=== PATIENT | male | born 1950 | race Caucasian/White ===

== ENCOUNTER → 2022-09-01 | Outpatient (CLI) | payer OTHER ==
--- NOTE | 2022-09-03 10:46 | PE ---
EXAMINATION TYPE: PET CT fusion skull to thigh DATE OF EXAM: 09/01/2022 CLINICAL INDICATION:Male, 72 years old with history of C90.00 Multiple myeloma; TECHNIQUE: Following the intravenous administration of 10.36 mCi of F-18 FDG, whole body images are performed from the skull base to the midthigh. Images are reviewed on the computer in the coronal, axial, and sagittal planes. Reconstructed rotating images are created on independent workstation and reviewed on the computer. A non-contrast CT is performed in conjunction with the PET scan. Glucose level 87 mg/dL COMPARISON: CT None, PET/CT None, FINDINGS: Mediastinal SUV mean is 1.7. Hepatic parenchyma SUV mean is 2.3. SKULL BASE AND NECK: No suspicious radiotracer activity. CHEST, MEDIASTINUM, AND HILAR REGION: No suspicious radiotracer activity. ABDOMEN AND PELVIS: No suspicious radiotracer activity. OSSEOUS STRUCTURES: No suspicious radiotracer activity. Total knee arthroplasty changes bilaterally. OTHER CT: Right chest wall Acosdy-d-Wcgm with tip terminating in the superior vena cava. Scattered pa rtially calcified lymph nodes in this mediastinum. Conduction device with leads terminating in the ri ght ventricle and atrium. Scattered calcified splenic granulomas. Bilateral fat-containing femoral he rnias. IMPRESSION: No suspicious radiotracer activity.
== END | disposition home or self-care (01) ==
LOC: RADPETMAIN 14:09
PROVIDERS: ATTEND Internal Medicine
DX: C90.00 Multiple myeloma not having achieved remission (principal)
CPT/HCPCS: 78815; A9552

== ENCOUNTER 2023-07-09 11:02 | Day surgery (SDC) | payer OTHER ==
[2023-07-04 15:36] VITALS: BMI 35.2
[2023-07-09] MEDS ORDERED: SODIUM CHLORIDE 0.9% 500 ML 500 ML IV ONE (11:08)
[2023-07-09 11:38] LABS: Glucose,Whole Blood 199 mg/dL (70-110)
[2023-07-09] MEDS ORDERED: fentaNYL (PF) 50 MCG/ML 2 ML AMP ONE (11:46)
[2023-07-09 12:08] VITALS: TEMP 98.1
[2023-07-09] MEDS ORDERED: fentaNYL (PF) 50 MCG/ML 2 ML AMP IVP ONE (12:14)
[2023-07-09] MEDS ORDERED: MIDAZOLAM 2 MG/2 ML VIAL IVP ONE ×2 (12:14→12:16)
--- NOTE | 2023-07-09 12:59 | P.TEE ---
Date of Procedure: 07/09/23 Description of Procedure(s): Procedure performed: 1. Transesophageal Echocardiogram with color flow doppler, pulsed wave doppler and continuous wave doppler 2. Moderate conscious sedation. Sedation time 15 mins. 3. Bubble Study Indications: 4 weeks post watchman procedure 73-year-old male with past medical history of diabetes, hypertension, dyslipidemia, atrial fibrillation who underwent watchman procedure on May 28 at [facility]. He was scheduled for an outpatient transesophageal echocardiogram procedure as a part of post watchman evaluation. Consent: I have discussed the risks, benefits and alternative therapies for the above-mentioned procedure. The patient has indicated understanding and acceptance of the risks of the procedure. Signed consent was obtained and was placed in the paper chart. Procedural Steps: Timeout was performed in usual fashion. Patient's heart rate, blood pressure, oxygen saturation and ECG were monitored. Benzocaine was sprayed liberally in the back of the throat. Bite block was placed between the jaw. 2 mg of Versed and 75 mcg of Fentanyl were administered intravenously. After achieving appropriate moderate conscious sedation, KARINA probe was advanced without difficulty and without any immediate complications to the esophagus. KARINA study was performed with color flow doppler, pulsed wave doppler and continuous wave doppler. Agitated saline bubbles were injected to assess for any intra- atrial shunt. The probe was then removed. Patient tolerated the procedure well. Patient was transferred to the post procedure area in stable and satisfactory condition. Throughout the procedure patient's heart rate, blood pressure, oxygen saturation and ECG were monitored. Total sedation time 15 mins. Complications: none FINDINGS Left Atrium: Normal Left atrial size. No evidence of mass or thrombus seen Left Atrial Appendage: Watchman device in appropriate position. No device related thrombosis. There is small leak appreciated at the superio-lateral aspect of the watchman device. Inter atrial septum: Intact inter-atrial septum with no evidence of atrial septal defect. Left Ventricle: Normal global LV size and systolic function. Right Atrium: Normal overall RV size. PPM wire in RA with no vegetation. Right Ventricle: Normal global RV size and systolic function. PPM wire in RV with no vegetation. Aortic Valve: Structurally normal Trileaflet, no significant calcification. No significant stenosis. Trace regurgitation on color doppler assessment. Mitral Valve: Struturally normal. Mild regurgitation. Pulmonic Valve: Structurally normal. Tricuspid Valve: Structurally normal. Ascending aorta, Aortic root and Aortic arch: Mild intimal thickening. Normal size 3.8 cm Descending aorta: Mild intimal thickening. CONCLUSION: Well seated watchman device with small leak No device related thrombosis No evidence of thrombus in left atrium Mild mitral regurgitation Patient is on DAPT therapy with aspirin and Plavix. Would recommend to be started on systemic anticoagulation due to leak in the watchman device. Updated EP team who would take the final decision considering patient's bleeding risk and appropriateness of anticoagulation Followup with Dr Murray Performing and interpreting physician Jimmy Solares MD
[2023-07-09] MEDS ORDERED: INSULIN ASPART (NovoLOG) 100 UNIT/ML VIAL SQ ONE (13:36)
[2023-07-09 14:53] VITALS: BP 120/64; PULSE 72; RESP 16
== END 2023-07-09 14:12 | disposition home or self-care (01) ==
LOC: CATHCVL 11:02
PROVIDERS: ATTEND Student in an Organized Health Care Education/Training Program
DX: I48.19 Other persistent atrial fibrillation (principal); E78.5 Hyperlipidemia, unspecified; I25.10 Atherosclerotic heart disease of native coronary artery without angina pectoris; I12.9 Hypertensive chronic kidney disease with stage 1 through stage 4 chronic kidney disease, or unspecified chronic kidney disease; E11.22 Type 2 diabetes mellitus with diabetic chronic kidney disease; N18.9 Chronic kidney disease, unspecified; Z86.73 Personal history of transient ischemic attack (TIA), and cerebral infarction without residual deficits; Z95.810 Presence of automatic (implantable) cardiac defibrillator; Z88.8 Allergy status to other drugs, medicaments and biological substances; Z79.899 Other long term (current) drug therapy; Z79.84 Long term (current) use of oral hypoglycemic drugs
CPT/HCPCS: 93312; 93320; 93325; 99152; J2250; J3010

== ENCOUNTER → 2023-10-11 | Outpatient (CLI) | payer OTHER ==
--- NOTE | 2023-10-11 19:34 | PE ---
EXAMINATION TYPE: PET CT fusion skull to thigh DATE OF EXAM: 10/11/2023 CLINICAL INDICATION:Male, 73 years old with history of C90.01 myeloma; TECHNIQUE: Following the intravenous administration of 12.46 mCi of F-18 FDG, whole body images are performed from the skull base to the midthigh. Images are reviewed on the computer in the coronal, axial, and sagittal planes. Reconstructed rotating images are created on independent workstation and reviewed on the computer. A non-contrast CT is performed in conjunction with the PET scan. Glucose level 100 mg/dL CT DLP: 1349 mGycm, Automated exposure control for dose reduction was used. COMPARISON: CT None, PET/CT 09/01/2022, FINDINGS: Mediastinal SUV mean is 2.4. Hepatic parenchyma SUV mean is 2.9. SKULL BASE AND NECK: No suspicious radiotracer activity. CHEST, MEDIASTINUM, AND HILAR REGION: No suspicious radiotracer activity. ABDOMEN AND PELVIS: No suspicious radiotracer activity. OSSEOUS STRUCTURES: Increased focal uptake within the left iliac near a site of deformity with a luce nt area which is not significantly changed from prior in size from 09/01/2022. Series 3 image 229 Max SUV 9.9, previously 6.3. The right iliac crest also demonstrates early bony remodeling in a similar location max SUV 4.6, previously 2.1. OTHER CT: Right chest wall Kuxzlt-j-Brac with tip terminating in the superior vena cava. Scattered pa rtially calcified lymph nodes in this mediastinum. Conduction device with leads terminating in the ri ght ventricle and atrium. Nodular contour to liver. Scattered calcified splenic granulomas the spleen is enlarged for size measuring up to 16.9 cm. Bilateral fat-containing femoral hernias. IMPRESSION: 1. Indeterminate uptake within the left iliac crest which has mildly increased with underlying bony deformity and a more central lucent area. Findings could represent chronic injury change versus myelo ma changes continued surveillance imaging. The right iliac crest also has a similar early bony deform ity changes with mildly increased uptake. 2. Nodular contour to liver with splenomegaly correlate for hepatic cirrhosis with underlying portal hypertension.
== END | disposition home or self-care (01) ==
LOC: RADPETMAIN 10:48
PROVIDERS: ATTEND Internal Medicine
DX: C90.01 Multiple myeloma in remission (principal); R16.1 Splenomegaly, not elsewhere classified; K76.89 Other specified diseases of liver
CPT/HCPCS: 78815; A9552

== ENCOUNTER 2024-08-04 18:02 | Emergency (ER) | payer OTHER ==
[2024-08-04 18:12] VITALS: RESP 18; TEMP 98.1
--- NOTE | 2024-08-04 18:30 | ED ---
General Adult HPI - General Chief complaint: Back Pain/Injury Stated complaint: Back/Leg Pain Time Seen by Provider: 08/04/24 18:07 Source: patient, EMS, RN notes reviewed Mode of arrival: EMS Limitations: no limitations - History of Present Illness Initial comments: Patient is a 74-year-old male present to the emergency department with concerns for back discomfort. Patient does have history of previous back discomfort. Patient has had previous imaging. No leg weakness. No new loss of sensation however patient has chronic unchanged neuropathy. No incontinence or retention of bowel or bladder products - Related Data Home Medications Medication Instructions Recorded Confirmed Acetaminophen [Tylenol] 325 - 650 mg PO Q6H PRN 10/15/22 07/09/23 Albuterol Sulfate [Albuterol 1 puff PO RT-QID PRN 10/15/22 07/09/23 Sulfate Hfa] Ascorbic Acid [Vitamin C] 500 mg PO BID 10/15/22 07/09/23 Atorvastatin [Lipitor] 40 mg PO HS 10/15/22 07/09/23 Bacitracin 500unt/Gm Ointment 1 applic TOPICAL DAILY PRN 10/15/22 10/15/22 Bumetanide [BUMEX] 1 mg PO DAILY 10/15/22 07/09/23 Capsaicin Cream [Trixaicin Cream] 1 applic TOPICAL TID 10/15/22 10/15/22 Cholecalciferol [Vitamin D3 (25 75 mcg PO DAILY 10/15/22 07/09/23 Mcg = 1000 Iu)] Cyanocobalamin [Vitamin B-12 1,000 mcg SQ QMONTHLY 10/15/22 07/09/23 Injection] Docusate [Colace] 100 mg PO BID 10/15/22 07/09/23 EPINEPHrine (Auto Inject) [Epipen] 0.3 mg IM ONCE PRN 10/15/22 07/09/23 Empagliflozin [Jardiance] 25 mg PO DAILY 10/15/22 07/09/23 Eplerenone [Inspra] 25 mg PO DAILY 10/15/22 07/09/23 Famotidine [Pepcid] 20 mg PO BID 10/15/22 07/09/23 Finasteride [Proscar] 5 mg PO DAILY 10/15/22 07/09/23 Fluticasone Nasal Mereta [Flonase 1 spray EA NOSTRIL BID 10/15/22 07/09/23 Nasal Mereta] Insulin Aspart [NovoLOG Flexpen] 30 units SQ AC-TID 10/15/22 07/09/23 Insulin Glargine,Hum.rec.anlog 30 units SQ BID 10/15/22 07/09/23 [Insulin Glargine Solostar] Ketoconazole 2% Cream [Nizoral 2%] 1 applic TOPICAL BID 10/15/22 10/15/22 Lactulose 2 - 3 tbsp PO QID PRN 10/15/22 10/15/22 Lidocaine 5% Oint [Xylocaine 5% 1 applic TOPICAL BID PRN 10/15/22 10/15/22 Oint] Loratadine [Claritin] 10 mg PO DAILY 10/15/22 07/09/23 Magnesium Oxide [Mag-Ox] 400 mg PO BID 10/15/22 07/09/23 Metoprolol Succinate [Toprol XL] 200 mg PO DAILY 10/15/22 07/09/23 Multivitamins, Thera [Multivitamin 1 tab PO DAILY 10/15/22 07/09/23 (formulary)] Omeprazole [PriLOSEC] 20 mg PO DAILY 10/15/22 07/09/23 Rifaximin [Xifaxan] 550 mg PO BID 10/15/22 07/09/23 Sacubitril/Valsartan [Entresto 49 2 tab PO BID 10/15/22 07/09/23 mg-51 mg Tablet] Sennosides [Senokot] 8.6 mg PO HS 10/15/22 07/09/23 Simethicone [Simethicone Chew] 80 mg PO QID PRN 10/15/22 07/09/23 Sodium Chloride 0.65% Nasal [Deep 2 spray EA NOSTRIL QID PRN 10/15/22 10/15/22 Sea (Saline)] Tamsulosin HCl [Flomax] 0.4 mg PO DAILY 10/15/22 07/09/23 Terbinafine 1% Cream [LamISIL] 1 applic TOPICAL DAILY PRN 10/15/22 07/09/23 Triamcinolone Acetonide 1 applic TOPICAL BID 10/15/22 07/09/23 [Triamcinolone Acetonide 0.025%] levETIRAcetam [Keppra] 1,500 mg PO BID 10/15/22 07/09/23 metFORMIN HCL ER [Glucophage XR] 500 mg PO BID 10/15/22 07/09/23 metroNIDAZOLE 0.75% CREAM 1 applic TOPICAL BID 10/15/22 07/09/23 [Metrocream 0.75%] Aspirin 81 mg PO DAILY 07/09/23 07/09/23 Clopidogrel [Plavix] 75 mg PO DAILY 07/09/23 07/09/23 Empagliflozin [Jardiance] 25 mg PO DAILY 07/09/23 07/09/23 Eplerenone 25 mg PO DAILY 07/09/23 07/09/23 Ezetimibe [Zetia] 10 mg PO DAILY 07/09/23 07/09/23 Finasteride [Proscar] 5 mg PO HS 07/09/23 07/09/23 Fluticasone Nasal Mereta [Flonase 2 spray EA NOSTRIL DAILY 07/09/23 07/09/23 Nasal Mereta] Fluticasone Propion/Salmeterol 1 inhalation PO BID 07/09/23 07/09/23 [Fluticasone-Salmeterol 500-50] Loratadine [Claritin] 5 mg PO DAILY 07/09/23 07/09/23 Magnesium Oxide [Mag-Ox] 400 mg PO BID 07/09/23 07/09/23 Metoprolol Succinate (ER) [Toprol 100 mg PO DAILY 07/09/23 07/09/23 Xl] Multivitamins, Thera [Multivitamin 1 tab PO DAILY 07/09/23 07/09/23 (formulary)] Omeprazole 20 mg PO BID 07/09/23 07/09/23 Rifaximin [Xifaxan] 550 mg PO BID 07/09/23 07/09/23 Simethicone Chew [Mylicon Chew] 40 mg PO QID 07/09/23 07/09/23 Tamsulosin HCl [Flomax] 0.4 mg PO HS 07/09/23 07/09/23 levETIRAcetam [Elepsia Xr] 1,500 mg PO BID 07/09/23 07/09/23 metroNIDAZOLE [metroNIDAZOLE 0.75%] 1 applic TOPICAL DAILY 07/09/23 07/09/23 Allergies Allergy/AdvReac Type Severity Reaction Status Date / Time adhesive tape Allergy tears Verified 08/04/24 18:12 skins and blisters/tegaderm &3m clear tape ok bee pollen Allergy Rash/Hives Verified 08/04/24 18:12 lisinopril Allergy Cough Verified 08/04/24 18:12 Review of Systems ROS Statement: Those systems with pertinent positive or pertinent negative responses have been documented in the HPI. ROS Other: All systems not noted in ROS Statement are negative. Constitutional: Denies: fever Eyes: Denies: eye pain ENT: Denies: ear pain Respiratory: Denies: dyspnea Gastrointestinal: Denies: abdominal pain Musculoskeletal: Reports: as per HPI, back pain Neurological: Denies: weakness, numbness, paresthesias Past Medical History Past Medical History: Coronary Artery Disease (CAD), Diabetes Mellitus, Hyperlipidemia, Hypertension Additional Past Medical History / Comment(s): IONE, 5 subdural hematoms Last Myocardial Infarction Date:: 1996 History of Any Multi-Drug Resistant Organisms: None Reported Past Surgical History: Orthopedic Surgery Additional Past Surgical History / Comment(s): brain surgery, deb arm surgery, cervical disc removed, deb knee replacement Past Anesthesia/Blood Transfusion Reactions: No Reported Reaction Past Psychological History: No Psychological Hx Reported Smoking Status: Former smoker Past Alcohol Use History: None Reported Past Drug Use History: None Reported - Past Family History Father History Unknown: Yes Family Medical History: Cancer Additional Family Medical History / Comment(s): lung CA Mother Additional Family Medical History / Comment(s): at age 93 Sister(s) Family Medical History: Cancer Additional Family Medical History / Comment(s): lupus-, liver CA- passe away Brother(s) Family Medical History: Cancer Additional Family Medical History / Comment(s): pancreatic CA-. 2nd brother pancreatic CA General Exam Limitations: no limitations General appearance: alert, in no apparent distress Head exam: Present: normocephalic Eye exam: Present: normal appearance Neck exam: Present: normal inspection Respiratory exam: Present: normal lung sounds bilaterally Cardiovascular Exam: Present: regular rate, normal rhythm Expanded Peripheral pulses: 2+: Posterior Tibialis (R), Posterior Tibialis (L) GI/Abdominal exam: Present: soft. Absent: distended, tenderness, pulsatile mass Extremities exam: Present: normal inspection Back exam: Present: normal inspection Neurological exam: Present: alert. Absent: motor sensory deficit Expanded Sensory exam: Lower Extremity Light Touch: Normal Motor strength exam: RUE: 5, LUE: 5, RLE: 5, LLE: 5 Psychiatric exam: Present: normal affect, normal mood Skin exam: Present: normal color Course Vital Signs 08/04/24 18:03 Temperature 98.1 F Pulse Rate 90 Respiratory 18 Rate Blood Pressure 136/68 O2 Sat by Pulse 98 Oximetry Medical Decision Making - Medical Decision Making Was pt. sent in by a medical professional or institution (, PA, [employer], urgent care, hospital, or prison...) When possible be specific @ -No Did you speak to anyone other than the patient for history (EMS, parent, family, police, friend...)? What history was obtained from this source @ -No Did you review nursing and triage notes (agree or disagree)? Why? @ -I reviewed and agree with nursing and triage notes Were old charts reviewed (outside hosp., previous admission, EMS record, old EKG, old radiological studies, urgent care reports/EKG's, prison records)? Report findings @ -No old charts were reviewed Differential Diagnosis (chest pain, altered mental status, abdominal pain women, abdominal pain men, vaginal bleeding, weakness, fever, dyspnea, syncope, headache, dizziness, GI bleed, back pain, seizure, CVA, palpatations, mental health, musculoskeletal)? @ -Differential Back Pain: Strain, zoster, cauda equina syndrome, epidural abscess, vertebral osteomyelitis, discitis, fracture, subluxation, disc herniation, DJD, spinal stenosis, dissection, AAA, pancreatitis, peptic ulcer disease, pyelonephritis, kidney stone, this is not meant to be an all-inclusive list. EKG interpreted by me (3pts min.). @ -As above X-rays interpreted by me (1pt min.). @ -Lumbar spine x-ray does show some degenerative CT interpreted by me (1pt min.). @ -None done U/S interpreted by me (1pt. min.). @ -None done What testing was considered but not performed or refused? (CT, X-rays, U/S, labs)? Why? @ -None What meds were considered but not given or refused? Why? @ -None Did you discuss the management of the patient with other professionals (professionals i.e. , PA, [employer], lab, RT, psych nurse, social media marketer, roll picker, teacher, chief science officer, rn case management)? Give summary @ -No Was smoking cessation discussed for >3mins.? @ -No Was critical care preformed (if so, how long)? @ -No Were there social determinants of health that impacted care today? How? (Homelessness, low income, unemployed, alcoholism, drug addiction, transportation, low edu. Level, literacy, decrease access to med. care, long term, rehab)? @ -No Was there de-escalation of care discussed even if they declined (Discuss DNR or withdrawal of care, Hospice)? DNR status @ -No What co-morbidities impacted this encounter? (DM, HTN, Smoking, COPD, CAD, Cancer, CVA, ARF, Chemo, Hep., AIDS, mental health diagnosis, sleep apnea, morbid obesity)? @ -Patient states he does have history of similar back Was patient admitted / discharged? Hospital course, mention meds given and route, prescriptions, significant lab abnormalities, going to OR and other pertinent info. @ -Patient presents with lower back pain throughout the day. Patient does not have any red flags. Patient received medications and does feel better. Patient will be discharged. Medications were refused and patient will stick with Tylenol Undiagnosed new problem with uncertain prognosis? @ -No Drug Therapy requiring intensive monitoring for toxicity (Heparin, Nitro, Insulin, Cardizem)? @ -No Were any procedures done? @ -No Diagnosis/symptom? @ -Low back pain Acute, or Chronic, or Acute on Chronic? @ -Acute Uncomplicated (without systemic symptoms) or Complicated (systemic symptoms)? @ -Default Side effects of treatment? @ -No Exacerbation, Progression, or Severe Exacerbation? @ -No Poses a threat to life or bodily function? How? (Chest pain, [place], [place], pneumonia, PE, COPD, DKA, ARF, appy, cholecystitis, CVA, Diverticulitis, Homicidal, Suicidal, threat to staff... and all critical care pts) @ -No Disposition Clinical Impression: Low back pain Disposition: HOME SELF-CARE Condition: Stable Instructions (If sedation given, give patient instructions): Acute Low Back Pain (ED) Additional Instructions: Please do follow-up with your primary care physician in the next 1 or 2 days for recheck. Return for increased pain, fever, weakness, loss of control of bowel or bladder, worsening or changing symptoms or any other concerns. Is patient prescribed a controlled substance at d/c from ED?: No Referrals: Marcin Escobar MD [STAFF PHYSICIAN] - 1-2 days Forms: Area PCPs Time of Disposition: 20:35
[2024-08-04] MEDS: KETOROLAC 15 MG/ML 1 ML VIAL IM STA (18:52)
[2024-08-04] MEDS: HYDROmorphone 1 MG/ML 1 ML SYRINGE IM STA (18:53)
--- NOTE | 2024-08-04 20:07 | XR ---
EXAMINATION TYPE: XR lumbar spine 2 or 3V DATE OF EXAM: 08/04/2024 6:53 PM COMPARISON: None CLINICAL INDICATION: Male, 74 years old with history of lbp; lower back pain TECHNIQUE: XR lumbar spine 2 or 3V - Frontal, lateral and coned in L5-S1 lateral views of the spine. FINDINGS: No evidence of any acute osseous pathology. No evidence of loss of vertebral body height i s seen. There is normal alignment of the lumbar vertebral bodies. Scattered disc space narrowing. Mul tilevel marginal osteophyte formation throughout the visualized spine. There is facet joint arthropat hy throughout the spine. Scattered at least mild neural foraminal stenosis. IMPRESSION: 1. No acute fracture. 2. Moderate multilevel disc degeneration. [facility], , 08/04/2024 8:04 PM
[2024-08-04 21:03] VITALS: BP 134/72; PULSE 87
== END 2024-08-04 21:03 | disposition home or self-care (01) ==
LOC: EC 18:02
DX: M54.50 Low back pain, unspecified (principal); Z91.09 Other allergy status, other than to drugs and biological substances; Z88.6 Allergy status to analgesic agent; Z87.891 Personal history of nicotine dependence; Z91.030 Bee allergy status
CPT/HCPCS: 72100; 99284; 96372 ×2; J1171; J1885

== ENCOUNTER → 2024-12-02 | Outpatient (CLI) | payer OTHER ==
[2024-12-02 09:23] LABS: African American GFR (CKD) 46 (>60 ml/min/1.73 sqM); Blood Urea Nitrogen 21 mg/dL (9-20); Non-African American GFR(CKD) 40 (>60 ml/min/1.73 sqM)
--- NOTE | 2024-12-02 11:53 | CT ---
EXAMINATION TYPE: CT angio head CT DLP: 1095.20 mGycm, Automated exposure control for dose reduction was used. DATE OF EXAM: 12/02/2024 11:24 AM COMPARISON: CTA head neck 10/15/2022, CT head 10/02/2022. CLINICAL INDICATION:Male, 74 years old with history of R56.9 UNSPECIFIED CONVULSIONS S06.5XAA; PHH, U nspecified convulsions, hx subdural hematoma TECHNIQUE: Axially acquired helical CT angiogram of the head was obtained with contrast utilizing 75 cc of Isovue-370 administered intravenously. Noncontrast imaging of the head was performed with admin istration of contrast. Axial images are supplemented with 3D reconstructions which were post-processe d at an independent workstation. NASCET criteria used. FINDINGS: No evidence of acute intracranial hemorrhage, mass effect, or midline shift. The ventricles, sulci, a nd cisterns are unremarkable. Bilateral craniotomy defects. Right maxillary sinus 1.7 cm mucous reten tion cyst. Bilateral periventricular hypodense regions. Mild cerebral volume loss. Right aphakia. The visualized portions of the internal carotid arteries, middle cerebral arteries, anterior cerebral arteries, and posterior cerebral arteries are patent. The basilar and vertebral arteries are patent. IMPRESSION: 1. No evidence of high-grade stenosis or intracranial aneurysm. 2. Nonspecific white matter changes likely related to small vessel ischemic disease. 3. Post surgical changes of the skull. [facility], , 12/02/2024 11:50 AM
== END | disposition home or self-care (01) ==
LOC: RADCTMAIN 08:13
PROVIDERS: ATTEND Psychiatry & Neurology Neurology
DX: S06.5XAA Traumatic subdural hemorrhage with loss of consciousness status unknown, initial encounter (principal); R56.9 Unspecified convulsions; Z98.890 Other specified postprocedural states; H27.01 Aphakia, right eye; X58.XXXA Exposure to other specified factors, initial encounter
CPT/HCPCS: 82565; 84520; 70496; 36415; Q9967